=== PATIENT | male | born 1955 | race Caucasian/White ===

== ENCOUNTER 2017-04-22 15:46 | Emergency (ER) | payer OTHER ==
[~2017-04-22] VITALS: Ht 185.4 cm; Wt 102.1 kg
[2017-04-22] MEDS ORDERED: METOPROLOL50 MG PO (16:06)
[2017-04-22] MEDS ORDERED: CLOPIDOGREL75 MG PO (16:08)
[2017-04-22] MEDS ORDERED: [UNRECOGNIZED DRUG - OTHER] PO (16:08)
[2017-04-22] MEDS ORDERED: ASPIRIN 81MG TA81 MG PO (16:08)
[2017-04-22 16:22] LABS: URINE BLOOD NEGATIVE (NEG)
[2017-04-22 16:23] LABS: HEMOGLOBIN 13.3 g/dL (14.1-18.0); LYMPH # 1.8 K/mm3 (0.7-4.5); LYMPH % 9.9 % (10-50)
[2017-04-22 16:42] LABS: URINE BILIRUBIN - DIPSTICK 1+ (NEG)
--- NOTE | 2017-04-22 16:42 | Emergency Room Report ---
History of Present Illness Time Seen by 155Arina Presenting Problem in Triage Pt arrived:Walked Presenting Problem:PT C/O SORE THROAT, COLD-LIKE SYMPTOMS, BODYACHES, COUGHING BLOOD, AND URINATING BLOOD Onset of symptoms date/time:/ or onset unknown for:MEDICAL HX UNKNOWN Treatment Prior to Arrival: [employer] Provided by: Sepsis Risk Assessment: Temp: 99.0 B/P: 156/102 MAP: 120 Pulse: 98 Resp: 18 Recent fever? N Clinical Suspician of Infection? N Mental Status: 1 - Regular (Normal Baseline) Sepsis Risk:Low Sepsis Risk Have you (or family members/close friends) recently traveled outside the [place]? N If Yes, where/when: Have you had exposure to infectious disease within the past month? N TB? Other? Specify: Patient on Plavix and aspirin, having forceful coughing with streaks of blood in sputum over the past two days; has chills and sore throat; no vomiting or congestion. Is a little [place] with chronic tinnitus. Has quit smoking this past month but has 39 py hx of tobacco abuse. No weight loss or night sweats. Works in tobacco. Able to keep down fluids and food but has diminished appetite. ALLERGIES Coded Allergies: Penicillins (Mild, 04/22/17) Home Medications Reported Medications Metoprolol Tartrate (Metoprolol) 50 MG PO DAILY [EXFO] 0 PO DAILY CLOPIDOGREL BISULFATE (Clopidogrel 75MG) 75 MG PO DAILY ASPIRIN (Aspirin) 81 MG PO DAILY History Medical History General CAD? No Angina: No SD: No Hypertension? No Hyperlipidemia? No CHF? No DVT? No PE? No COPD? No Asthma? No Anemia? No GERD? No Gastric ulcers? No GI Bleed? No Hernia? No Thyroid Problems? No Hypothyroidism? No CVA? No Seizures? No Diabetes? No Renal Insuffiency? No End Stage Renal Disease? No UTI? No Stones? No BPH? No GB Disease: No Nephritic Syndrome? No Asplenia? No Hepatitis? No Sickle Cell Disease? No Arthritis? No Migraines? No Cataracts? No Glaucoma? No MRSA? No HIV? No TB? No Anxiety? No Depression? No Cancer? No More? No Immunization Hx DT/Tetanus Unknown Surgical Hx Previous Surgery?N Social History Smoking Hx Smoker: Former Smoker Tobacco: Yes Type Cigarettes Alcohol Alcohol: No Review of Systems All Other Systems Reviewed and Negative ENT see HPI. Respiratory see HPI Physical Exam Vital Signs Vital Signs Date Time Temp Pulse Resp B/P Pulse O2 O2 Flow FiO2 Ox Delivery Rate 04/22 1725 98 18 149/71 91 04/22 1559 99.0 98 18 156/102 91 General Appearance normal appearance, WD/WN, no apparent distress Eye Exam - bilateral eye normal exam, bilateral eye PERRL, bilateral eye EOMI Ear, Nose, Throat hearing grossly normal, normal ENT inspection, normal pharynx (no epistaxis no blood in OP) Neck normal inspection, non-tender, supple (no meningismus), full range of motion Respiratory Status Yes: trachea midline, chest symmetrical, non tender chest, productive cough. No : respiratory distress, tender on palpation, use of accessory muscles, pain on inspiration, pain on expiration, non productive cough. Lung Sounds bilateral: normal breath sounds, lungs clear. Cardiovascular normal exam, regular rate/rhythm, no peripheral edema, no gallop, no JVD, no murmur, no rub, normal peripheral pulses Peripheral Pulses Pulses normal Yes Gastrointestinal normal bowel sounds, normal exam, non tender, soft, no organomegaly, no pulsatile mass, no guarding, no rebound Extremities normal range of motion, normal inspection Strength 5 Upper Ext (L), 5 Upper Ext (R), 5 Lower Ext (L), 5 Lower Ext (R) Neurologic alert, normal exam, no motor/sensory deficits, oriented x 3 Glascow Coma Scale Glascow Coma Scale Response Value EYE response: 4 Spontaneously 4 MOTOR response: 6 OBEYS 6 VERBAL response: 5 Oriented & Converses 5 Total 15 Skin intact, normal color, warm/dry Medical Decision Making LABS/Meds/Orders Pt receiving controlled substance in ED? No Results/Orders Laboratory Tests 04/22/17 1655: Lactic Acid 1.2 04/22/17 1608: Sodium 135 L, Potassium 3.6, Chloride 97 L, Carbon Dioxide 30, BUN 25 H, Creatinine 1.2, Estimated Creat Clear 95, Estimated GFR (MDRD) 62, Glucose 148 H, Calcium 8.8, Total Bilirubin 0.5, AST 13 L, ALT 22, Alkaline Phosphatase 81, Total Protein 7.4, Albumin 3.1 L, Globulin 4.3 H, Albumin/Globulin Ratio 0.7 L, WBC 18.6 H, RBC 4.47 L, Hgb 13.3 L, Hct 38.4 L, MCV 85.9, RDW 12.8, Plt Count 292, MPV 8.7, Gran % 86.6 H, Gran # 16.1 H, Total Counted 100, Lymphocytes % 9.9 L, Monocytes % 3.0, Eosinophils % 0.3, Basophils % 0.2, Neutrophils 86 H, Band Neutrophils 2, Lymphocytes (Manual) 8 L, Lymphocytes # 1.8, Monocytes (Manual) 3, Monocytes # 0.6, Eosinophils # 0.1, Eosinophils # ( Manual) 1, Basophils # 0.0, RBC/WBC/PLT Morphology NORMAL, Platelet Estimate NORMAL, PUBS MCHC 34.5, MCH 29.7, Influenza Type A Ag NOT DETECTED, Influenza Type B Ag NOT DETECTED, Urine Color YELLOW, Urine Appearance CLEAR, Urine pH 6.0 , Ur Specific [place] >= 1.030, Urine Protein 2+ H, Urine Ketones TRACE H, Urine Blood NEGATIVE, Urine Nitrate POSITIVE H, Urine Bilirubin 1+ H, Urine Urobilinogen 1.0, Ur Leukocyte Esterase NEGATIVE, Urine RBC 3-5, Urine WBC 3-5, Ur Squamous Epith Cells 20-50, Urine Bacteria 4+, Hyaline Casts 5-10, Urine Mucus 2+, Urine Glucose NEGATIVE Current Medication Orders Sig/Charlette Start time Last Medication Dose Route Stop Time Status Admin Prednisone 80 MG ONCE ONE 04/22 1830 AC PO 04/22 183 Levofloxacin 0 .STK-MED ONE 04/22 182 DC .ROUTE Prednisone 0 .STK-MED ONE 04/22 1822 DC .ROUTE Levofloxacin 500 MG ONCE ONE 04/22 1800 DC PO 04/22 1801 Sodium Chloride 10 ML PRN PRN 04/22 1615 AC IV 04/23 1610 Orders Procedure Date/time Status CULTURE, AFB 04/22 1655 Active CHEST(2 VIEWS-NOT PORTABLE) 04/22 1642 Active CULTURE, BLOOD 04/22 1628 Active LACTIC ACID 04/22 1628 Complete IV SALINE LOCK 04/22 1611 Active CULTURE, SPUTUM 04/22 1611 Active URINALYSIS/COMPLETE 04/22 161 Complete STREP SCREEN THROAT 04/22 1611 Complete INFLUENZA A&B ANTIGENS 04/22 1611 Complete CBC WITH AUTO DIFF 04/22 161 Complete CHEM 12 PROFILE 04/22 1611 Complete CULTURE, URINE 04/22 1608 Active CULTURE, THROAT 04/22 1608 Active CULTURE, AFB 04/22 1608 Active DIFFERENTIAL-WBC 04/22 1608 Complete XRAY/CT/US XRAY/CT/US XRAY chest XR interpretation by reviewed by me Xray Results BLL infiltrates per [facility] t/c Progress ED Progress Notes Date 04/22/17 Time 181 Comment patient has not had any coughing episodes while in ED and prefers to go home; he will f/u with his 's PCP, Dr. Colon, next week and agrees to return if any worsening symptoms. Departure Departure Time of Disposition 1818 Disposition DC Home or Self Care(routine) Clinical Impression Primary Impression: Pneumonia Qualifiers: Pneumonia type: due to unspecified organism Laterality: bilateral Lung location: lower lobe of lung Qualified Code: J18.9 - Pneumonia, unspecified organism Condition STABLE Referrals Humberto Colon MD Patient Instructions DI for Pneumonia -- Adult Additional Instructions Levaquin, next dose due tomorrow evening; Robitussin DM over the counter; hold aspirin and Plavix tomorrow morning then resume as long as no further blood in sputum; see family doctor of choice (you had indicated you want to see Dr. Colon, who cares for your family) in two to three days for recheck. Discharge Counseling Counseled pt/family regarding diagnosis, test results, medications/RX, home care, follow up needs, Need to return if any worsening symptoms. Prescriptions Current Visit Scripts Levofloxacin (Levaquin 500MG) 500 MG PO DAILY #6 TAB Methylprednisolone (Medrol Dose Ricardo) 4 MG PO UD #1 RICARDO TAKE DIRECTED ON PACKAGING ED Critical Care Critical Care No at 182
[2017-04-22 16:47] LABS: STREP SCREEN (RAPID) NEGATIVE
[2017-04-22 16:51] LABS: NEUTROPHILS 86 % (42-76)
[2017-04-22 17:00] LABS: URINE SQUAMOUS CELLS 20-50 #/hpf (OCC)
[2017-04-22] MEDS ORDERED: MEDROL 4MG. DOSE4 MG PO (18:23)
[2017-04-22] MEDS ORDERED: LEVAQUIN500 MG PO (18:23)
[2017-04-22 18:29] VITALS: BP 135/78
--- NOTE | 2017-04-23 08:06 | RADIOLOGY REPORT PS360 ---
CHEST(2 VIEWS-NOT PORTABLE) COMPARISON: None HISTORY: Hemoptysis TECHNIQUE: PA and lateral chest FINDINGS: Is a somewhat coarse ill-defined pneumonic infiltrate in the left lower lobe posterior basilar segment. There may be some minimal pneumonic infiltrate in the right lower lobe as well. The upper lung marquez are clear. There is a calcified granuloma right upper lobe. There are small calcified hilar nodes bilaterally. Cardiac size is normal and the vascularity is normal. IMPRESSION: Moderately dense left lower lobe pneumonia question minimal right lower lobe ammonia as well and suggest clinical correlation and follow-up films
== END 2017-04-22 18:29 | disposition home or self-care (01) ==
LOC: UTC 15:46 → ER 15:52 → UTC 15:52 → ER 18:29
PROVIDERS: Emergency Medicine
DX: J18.9 Pneumonia, unspecified organism (principal); Z87.891 Personal history of nicotine dependence; Z79.02 Long term (current) use of antithrombotics/antiplatelets; Z79.82 Long term (current) use of aspirin; Z79.899 Other long term (current) drug therapy